=== PATIENT | male | born 1950 | race Caucasian/White ===

== ENCOUNTER 2018-09-17 19:09 | Inpatient (IN) | payer MEDICAID ==
[~2018-09-17] VITALS: Ht 165.1 cm; Wt 652.3 kg
[~2018-09-17 19:09] MED LIST: ASPI-1160 PO; ATOR20TA PO
[2018-09-17 20:17] LABS: EOSINOPHILS % 2.6 % (0.0-5.0); HEMATOCRIT. 41.7 % (42.0-52.0); HEMOGLOBIN. 13.7 g/dL (14.0-18.0); LYMPHOCYTES % 20.3 % (20.0-50.0); MEAN CORPUSCULAR HEMOGLOBIN 28.1 pg (28.0-32.0); MEAN CORPUSCULAR VOLUME 85.1 fL (80.0-94.0); MEAN PLATELET VOLUME 6.5 fl (7.4-10.4); NEUTROPHILS % 67.1 % (40.0-76.0); PLATELET 302 x1000/uL (130-400); RED BLOOD CELL COUNT 4.89 mill/uL (4.7-6.1)
[2018-09-17 20:24] LABS: CHLORIDE 104 mEq/L (98-107)
[2018-09-17] MEDS ORDERED: ASPIRIN 81MG TABLET PO ONE (21:00)
[2018-09-17] MEDS ORDERED: ENOXAPARIN 60MG/0.6ML SYR SUBCUT ONE (22:30)
[2018-09-18] VITALS (16 sets, daily range): BP systolic 93–164; BP diastolic 52–98
[2018-09-18 08:02] LABS: HEMOGLOBIN. 13.7 g/dL (14.0-18.0); MEAN CORPUSCULAR HEMOGLOBIN 28.1 pg (28.0-32.0); MEAN CORPUSCULAR VOLUME 84.1 fL (80.0-94.0); PLATELET 316 x1000/uL (130-400); RED BLOOD CELL COUNT 4.87 mill/uL (4.7-6.1); RED CELL DISTRIBUTION WIDTH 13.9 % (11.6-14.6)
[2018-09-18] MEDS: AMLODIPINE 5MG TABLET PO SCH (08:48)
[2018-09-18] MEDS ORDERED: ASPIRIN 81MG EC TABLET PO SCH ×2 (09:00→17:00)
[2018-09-18] MEDS ORDERED: NITROGLYCERIN 0.4MG TABLET SL SL PRN (09:15)
[2018-09-18] MEDS: LOSARTAN POTASSIUM 25 MG TABLET PO SCH (10:52)
[2018-09-18 10:55] LABS: CHLORIDE 104 mEq/L (98-107)
[2018-09-18 11:33] LABS: CLARITY URINE CLEAR (CLEAR); COLOR URINE YELLOW (YELLOW); KETONES URINE NEGATIVE (NEGATIVE); LEUKOCYTE ESTERASE URINE NEGATIVE (NEGATIVE); NITRITE URINE NEGATIVE (NEGATIVE); OCCULT BLOOD URINE NEGATIVE (NEGATIVE); PROTEIN URINE NEGATIVE (NEGATIVE); SPECIFIC GRAVITY URINE 1.008 (1.005-1.030); UROBILINOGEN URINE 0.2 E.U./dL (0.2-1.0)
[2018-09-18 11:48] LABS: PLATELET ESTIMATE NORMAL
[2018-09-18] MEDS ORDERED: FENTANYL CITRATE/PF 50MCG/ML 2ML VIAL ONE (12:15)
[2018-09-18] MEDS ORDERED: ASPIRIN/SOD BICARB/CITRIC ACID 324MG TAB EFF ONE (12:15)
[2018-09-18] MEDS ORDERED: MIDAZOLAM HCL 2 MG/2 ML VIAL ONE (12:15)
[2018-09-18] MEDS ORDERED: LIDOCAINE HCL 1% 20ML VIAL (Pyxis) INJ ONE (12:16)
[2018-09-18] MEDS ORDERED: IODIXANOL 320MG/ML 100 ML BOTTLE IV ONE ×2 (12:16→13:20)
[2018-09-18] MEDS ORDERED: IOHEXOL-300 100 ML BOTTLE ONE (13:12)
[2018-09-18] MEDS ORDERED: CLOPIDOGREL 75MG TABLET PO NR (13:45)
[2018-09-18] MEDS ORDERED: ACETAMINOPHEN 325MG TABLET PO PRN (13:45)
[2018-09-18] MEDS ORDERED: ONDANSETRON HCL 4MG/2ML INJ IV PRN (13:45)
[2018-09-18] MEDS ORDERED: SODIUM CHLORIDE 0.45% 1,000 ML IV ONE (13:45)
[2018-09-18] MEDS ORDERED: ATROPINE SULFATE 1MG/10ML SYR IV PRN (13:45)
[2018-09-18] MEDS ORDERED: MORPHINE SULFATE 4 MG/ML CPJ (NOT FOR IM USE) IV PRN (13:45)
[2018-09-18] MEDS ORDERED: HEPARIN SODIUM 1,000 UNIT/1ML VIAL IV ONE (13:56)
[2018-09-18] MEDS ORDERED: NITROGLYCERIN 50MCG/ML 10ML VIAL (CATH LAB) IV ONE (14:58)
[2018-09-18] MEDS ORDERED: NICARDIPINE 100MCG/ML 10ML VIAL (CATH LAB) IV ONE (14:58)
[2018-09-18] MEDS: METOPROLOL TARTRATE 25MG TABLET PO SCH (21:00)
[2018-09-18] MEDS: ATORVASTATIN CALCIUM 20MG TABLET PO SCH (21:00)
[2018-09-18] MEDS ORDERED: DOCUSATE SODIUM 250MG CAPSULE PO PRN (23:30)
[2018-09-19] VITALS (12 sets, daily range): BP systolic 90–143; BP diastolic 34–92
[2018-09-19 07:20] LABS: EOSINOPHILS % 3.4 % (0.0-5.0); HEMATOCRIT. 40.3 % (42.0-52.0); HEMOGLOBIN. 13.6 g/dL (14.0-18.0); LYMPHOCYTES % 19.2 % (20.0-50.0); MEAN CORPUSCULAR HEMOGLOBIN 28.5 pg (28.0-32.0); MEAN CORPUSCULAR VOLUME 84.4 fL (80.0-94.0); MEAN PLATELET VOLUME 6.5 fl (7.4-10.4); MONOCYTES % 12.2 % (2.0-8.0); NEUTROPHILS % 64.2 % (40.0-76.0); PLATELET 306 x1000/uL (130-400); RED BLOOD CELL COUNT 4.77 mill/uL (4.7-6.1); RED CELL DISTRIBUTION WIDTH 14.1 % (11.6-14.6)
[2018-09-19 07:54] LABS: CHLORIDE 103 mEq/L (98-107)
[2018-09-19] MEDS: LOSARTAN POTASSIUM 25 MG TABLET PO SCH (08:05)
[2018-09-19] MEDS: METOPROLOL TARTRATE 25MG TABLET PO SCH ×2 (08:05→20:54)
[2018-09-19] MEDS: AMLODIPINE 5MG TABLET PO SCH (08:06)
[2018-09-19 08:08] LABS: LDL CHOLESTEROL 58 mg/dL (5-100)
[2018-09-19 08:10] LABS: CREATINE KINASE 326 IU/L (39-308); CREATINE KINASE MB FRACTION 19.5 ng/mL (0.5-3.6); HDL CHOLESTEROL 40 mg/dL (40-59)
[2018-09-19] MEDS: ASPIRIN 325MG TABLET PO SCH (08:15)
[2018-09-19] MEDS: CLOPIDOGREL 75MG TABLET PO SCH (08:15)
[2018-09-19] MEDS ORDERED: DIPHENHYDRAMINE 50MG CAPSULE PO PRN (20:15)
[2018-09-19] MEDS ORDERED: NA PHOS,M-B/NA PHOS,DI-BA ENEMA 118ML PR PRN (20:15)
[2018-09-19] MEDS: DOCUSATE SODIUM 250MG CAPSULE PO SCH (20:54)
[2018-09-19] MEDS: ATORVASTATIN CALCIUM 20MG TABLET PO SCH (20:54)
[2018-09-20] VITALS (8 sets, daily range): BP systolic 82–104; BP diastolic 40–76
[2018-09-20 05:41] LABS: CHLORIDE 105 mEq/L (98-107)
[2018-09-20 05:42] LABS: BASOPHILS % 0.7 % (0.0-2.0); EOSINOPHILS % 4.5 % (0.0-5.0); HEMATOCRIT. 40.2 % (42.0-52.0); HEMOGLOBIN. 13.6 g/dL (14.0-18.0); LYMPHOCYTES % 25.7 % (20.0-50.0); MEAN CORPUSCULAR HEMOGLOBIN 28.4 pg (28.0-32.0); MEAN CORPUSCULAR VOLUME 84.2 fL (80.0-94.0); MEAN PLATELET VOLUME 6.5 fl (7.4-10.4); MONOCYTES % 10.4 % (2.0-8.0); NEUTROPHILS % 58.7 % (40.0-76.0); PLATELET 321 x1000/uL (130-400); RED BLOOD CELL COUNT 4.78 mill/uL (4.7-6.1); RED CELL DISTRIBUTION WIDTH 14.3 % (11.6-14.6)
[2018-09-20] MEDS: AMLODIPINE 5MG TABLET PO SCH (08:49)
[2018-09-20] MEDS: METOPROLOL TARTRATE 25MG TABLET PO SCH (08:49)
[2018-09-20] MEDS: LOSARTAN POTASSIUM 25 MG TABLET PO SCH (08:49)
[2018-09-20] MEDS: ASPIRIN 325MG TABLET PO SCH (08:51)
[2018-09-20] MEDS: DOCUSATE SODIUM 250MG CAPSULE PO SCH (08:52)
[2018-09-20] MEDS: CLOPIDOGREL 75MG TABLET PO SCH (08:52)
[2018-09-20] MEDS ORDERED: CLOP75TA16 PO (11:27)
[2018-09-20] MEDS ORDERED: BISACODYL 10MG SUPP PR NR (11:30)
[2018-09-20] MEDS ORDERED: LACTULOSE 20G/30ML UDC PO SCH (14:00)
== END 2018-09-20 14:26 | disposition home health service (06) | DRG 175 ==
LOC: ER 19:09 → 3WST 21:24 → ENRESERV 23:59
PROVIDERS: ADMIT Internal Medicine; ATTEND Internal Medicine
PROC: 4A023N7 Measurement of Cardiac Sampling and Pressure, Left Heart, Percutaneous Approach (ICD-10-PCS; principal; 2018-09-18)
PROC: 027035Z Dilation of Coronary Artery, One Artery with Two Drug-eluting Intraluminal Devices, Percutaneous Approach (ICD-10-PCS; 2018-09-18)
PROC: B2111ZZ Fluoroscopy of Multiple Coronary Arteries using Low Osmolar Contrast (ICD-10-PCS; 2018-09-18)
PROC: B2121ZZ Fluoroscopy of Single Coronary Artery Bypass Graft using Low Osmolar Contrast (ICD-10-PCS; 2018-09-18)
PROC: B2181ZZ Fluoroscopy of Left Internal Mammary Bypass Graft using Low Osmolar Contrast (ICD-10-PCS; 2018-09-18)
PROC: B2151ZZ Fluoroscopy of Left Heart using Low Osmolar Contrast (ICD-10-PCS; 2018-09-18)
DX: T82.898A Other specified complication of vascular prosthetic devices, implants and grafts, initial encounter (principal); I21.4 Non-ST elevation (NSTEMI) myocardial infarction; I47.2 Ventricular tachycardia; I25.82 Chronic total occlusion of coronary artery; I11.0 Hypertensive heart disease with heart failure; I50.22 Chronic systolic (congestive) heart failure; I25.10 Atherosclerotic heart disease of native coronary artery without angina pectoris; E78.00 Pure hypercholesterolemia, unspecified; E78.5 Hyperlipidemia, unspecified; I25.5 Ischemic cardiomyopathy; I25.2 Old myocardial infarction
CPT/HCPCS: 36415; 71045; 80048; 80061; 82550; 82553; 83735; 83880; 84443; 84484; 85007; 85027; 85347; 85379; 92928; 93005; 93306; 93459; 96372; 99285; C1769; C1874; C1887; C1893; J1644; J1650; J2250; J3010; J3490; Q0163; Q9967

== ENCOUNTER 2018-11-29 22:58 | Inpatient (IN) | payer MEDICAID ==
[~2018-11-29] VITALS: Ht 165.1 cm; Wt 71.7 kg
[~2018-11-29 22:58] MED LIST changes: +CLOP75TA16 PO
[2018-11-30] MEDS ORDERED: ONDANSETRON HCL 4MG/2ML INJ IV STA (01:33)
[2018-11-30] MEDS ORDERED: MORPHINE SULFATE 10 MG/ML CPJ IV ONE (01:45)
[2018-11-30] MEDS ORDERED: NITROGLYCERIN OINT 1GM/INCH UDPKT TD ONE (01:45)
[2018-11-30 01:52] LABS: BASOPHILS % 0.7 % (0.0-2.0); EOSINOPHILS % 1.4 % (0.0-5.0); HEMATOCRIT. 45.2 % (42.0-52.0); LYMPHOCYTES % 29.4 % (20.0-50.0); MEAN CORPUSCULAR HEMOGLOBIN 26.7 pg (28.0-32.0); MEAN CORPUSCULAR VOLUME 80.6 fL (80.0-94.0); MEAN PLATELET VOLUME 6.3 fl (7.4-10.4); MONOCYTES % 9.7 % (2.0-8.0); NEUTROPHILS % 58.8 % (40.0-76.0); PLATELET 301 x1000/uL (130-400); RED BLOOD CELL COUNT 5.61 mill/uL (4.7-6.1); RED CELL DISTRIBUTION WIDTH 14.7 % (11.6-14.6)
[2018-11-30 01:56] LABS: CHLORIDE 104 mEq/L (98-107)
[2018-11-30 11:55] VITALS: BP 106/72
[2018-11-30] MEDS ORDERED: ASPIRIN 81MG TABLET PO SCH (12:49)
[2018-11-30] MEDS ORDERED: REGADENOSON 0.4 MG/5 ML IV ONE (13:30)
[2018-11-30] MEDS: CLOPIDOGREL 75MG TABLET PO SCH (14:33)
[2018-11-30 16:00] VITALS: BP 114/71
[2018-11-30 16:53] LABS: D-DIMER 0.21 mg/L FEU (<0.50); INR 1.1; PROTHROMBIN TIME 10.8 sec (9.1-11.1)
[2018-11-30] MEDS: ASPIRIN 81MG TABLET PO SCH (18:54)
[2018-11-30 19:05] LABS: CREATINE KINASE MB FRACTION 1.4 ng/mL (0.5-3.6)
[2018-11-30 20:00] VITALS: BP 115/77
[2018-11-30] MEDS: ATORVASTATIN CALCIUM 20MG TABLET PO SCH (22:07)
[2018-12-01] VITALS (7 sets, daily range): BP systolic 99–133; BP diastolic 61–86
[2018-12-01 07:11] LABS: BASOPHILS % 0.6 % (0.0-2.0); EOSINOPHILS % 1.6 % (0.0-5.0); HEMATOCRIT. 48.1 % (42.0-52.0); HEMOGLOBIN. 15.7 g/dL (14.0-18.0); LYMPHOCYTES % 23.5 % (20.0-50.0); MEAN CORPUSCULAR HEMOGLOBIN 26.8 pg (28.0-32.0); MEAN PLATELET VOLUME 6.4 fl (7.4-10.4); MONOCYTES % 10.4 % (2.0-8.0); NEUTROPHILS % 63.9 % (40.0-76.0); PLATELET 289 x1000/uL (130-400); RED BLOOD CELL COUNT 5.87 mill/uL (4.7-6.1); RED CELL DISTRIBUTION WIDTH 14.6 % (11.6-14.6)
[2018-12-01 07:28] LABS: CHLORIDE 104 mEq/L (98-107)
[2018-12-01] MEDS: CLOPIDOGREL 75MG TABLET PO SCH (08:33)
[2018-12-01] MEDS: ASPIRIN 81MG TABLET PO SCH ×2 (08:33→17:51)
[2018-12-01] MEDS ORDERED: REGADENOSON 0.4 MG/5 ML IV ONE (11:15)
[2018-12-01] MEDS: ATORVASTATIN CALCIUM 20MG TABLET PO SCH (22:22)
[2018-12-02 04:00] VITALS: BP 113/77
[2018-12-02 06:33] LABS: CHLORIDE 103 mEq/L (98-107)
[2018-12-02 06:53] LABS: BASOPHILS % 0.9 % (0.0-2.0); EOSINOPHILS % 3.4 % (0.0-5.0); LYMPHOCYTES % 36.5 % (20.0-50.0); MEAN CORPUSCULAR VOLUME 80.8 fL (80.0-94.0); MEAN PLATELET VOLUME 6.5 fl (7.4-10.4); MONOCYTES % 11.8 % (2.0-8.0); NEUTROPHILS % 47.4 % (40.0-76.0); PLATELET 303 x1000/uL (130-400); RED BLOOD CELL COUNT 5.57 mill/uL (4.7-6.1); RED CELL DISTRIBUTION WIDTH 14.4 % (11.6-14.6)
[2018-12-02 08:00] VITALS: BP 108/67
[2018-12-02] MEDS: CLOPIDOGREL 75MG TABLET PO SCH (09:05)
[2018-12-02] MEDS: ASPIRIN 81MG TABLET PO SCH (09:05)
[2018-12-02 12:00] VITALS: BP 111/79
[2018-12-02 14:54] VITALS: BP 111/79
== END 2018-12-02 16:20 | disposition home or self-care (01) | DRG 203 ==
LOC: ER 22:58 → 7WST 11-30 04:28 → EDBEDREQ 11-30 04:32 → ENRESERV 11-30 11:28
PROVIDERS: ADMIT Internal Medicine; ATTEND Internal Medicine
DX: M94.0 Chondrocostal junction syndrome [Tietze] (principal); E83.51 Hypocalcemia; I25.10 Atherosclerotic heart disease of native coronary artery without angina pectoris; E78.00 Pure hypercholesterolemia, unspecified; E78.5 Hyperlipidemia, unspecified; I10 Essential (primary) hypertension; I45.10 Unspecified right bundle-branch block; I25.2 Old myocardial infarction; I25.5 Ischemic cardiomyopathy; Z95.1 Presence of aortocoronary bypass graft; Z95.5 Presence of coronary angioplasty implant and graft; Z79.899 Other long term (current) drug therapy; Z79.82 Long term (current) use of aspirin
CPT/HCPCS: 36415; 71045; 78452; 80048; 80061; 82550; 82553; 83036; 83735; 84100; 84443; 84484; 85379; 93005; 93017; 99285; A9500; J2270; J2405; J2785

== ENCOUNTER 2020-09-25 09:50 | Emergency (ER) | payer MEDICARE, MEDICAID ==
[~2020-09-25] VITALS: Ht 165.1 cm; Wt 70.0 kg
[~2020-09-25 09:50] MED LIST changes: -CLOP75TA16 PO; +CLOP75TA4 PO
[2020-09-25] MEDS ORDERED: ONDANSETRON 4MG ODT PO STA (10:42)
[2020-09-25 11:35] LABS: BASOPHILS % 0.1 % (0.0-2.0); HEMATOCRIT. 45.4 % (42.0-52.0); HEMOGLOBIN. 15.6 g/dL (14.0-18.0); LYMPHOCYTES % 7.7 % (20.0-50.0); MEAN CORPUSCULAR HEMOGLOBIN 29.7 pg (28.0-32.0); MEAN CORPUSCULAR VOLUME 86.4 fL (80.0-94.0); MEAN PLATELET VOLUME 6.8 fl (7.4-10.4); MONOCYTES % 2.4 % (2.0-8.0); NEUTROPHILS % 89.8 % (40.0-76.0); PLATELET 280 x1000/uL (130-400); RED BLOOD CELL COUNT 5.25 mill/uL (4.7-6.1); RED CELL DISTRIBUTION WIDTH 13.8 % (11.6-14.6)
[2020-09-25 11:36] LABS: CHLORIDE 103 mEq/L (98-107)
[2020-09-25 13:11] VITALS: BP 150/80
== END 2020-09-25 13:15 | disposition home or self-care (01) ==
LOC: ER 09:50
DX: R11.2 Nausea with vomiting, unspecified (principal); I25.2 Old myocardial infarction; Z98.890 Other specified postprocedural states; Z79.82 Long term (current) use of aspirin
CPT/HCPCS: 36415; 71045; 80053; 83690; 85025; 93005; 99285; Q0162

== ENCOUNTER 2022-04-01 05:22 | Emergency (ER) | payer MEDICARE, MEDICAID ==
[~2022-04-01] VITALS: Ht 165.1 cm; Wt 66.8 kg
[~2022-04-01 05:22] MED LIST changes: +CLOP-31 PO; -CLOP75TA4 PO
[2022-04-01] MEDS ORDERED: POLY17PO3 MT (07:14)
[2022-04-01] MEDS ORDERED: LACTULOSE 20G/30ML UDC PO ONE (07:15)
[2022-04-01] MEDS ORDERED: MAGNESIUM CITRATE 300ML SOLUTION PO ONE (07:15)
[2022-04-01 08:20] VITALS: BP 122/74
== END 2022-04-01 08:20 | disposition home or self-care (01) ==
LOC: ER 05:22
DX: K59.00 Constipation, unspecified (principal); I25.2 Old myocardial infarction; Z98.61 Coronary angioplasty status; Z79.82 Long term (current) use of aspirin
CPT/HCPCS: 99282

== ENCOUNTER → 2023-07-22 | Outpatient (CLI) | payer MEDICARE, MEDICAID ==
[~2023-07-22] MED LIST changes: -ASPI-1160 PO; -ATOR20TA PO; -CLOP-31 PO; +DIATR MEGLU/DIATRIZOATE SOLN 120ML ONE
== END | disposition home or self-care (01) ==
LOC: RAD 09:25
PROVIDERS: ATTEND Surgery
DX: K59.00 Constipation, unspecified (principal); Z93.3 Colostomy status
CPT/HCPCS: 74270; Q9963